=== PATIENT | female | born 1965 | race Caucasian/White ===

== ENCOUNTER 2018-11-23 12:13 | Outpatient (CLI) | payer OTHER ==
--- NOTE | 2018-11-23 14:41 | MRI ---
LEFT SHOULDER MRI WITHOUT IV CONTRAST: Date: 11/23/18 HISTORY: Tear of left rotator cuff, left shoulder pain with limited and painful range of motion for about 1 ye ar. FINDINGS: AC joint arthrosis changes are noted with minimal subchondral cystic change. Very mild fat stranding in the subacromial bursa. Irregular abnormal signal involving the supraspinatus tendon footplate syeda on, primarily bursal-sided, probably very high grade partial thickness tear versus a small associated punctate full thickness component extending to the undersurface. Abnormal signal associated with the superior labrum, evidence for a SLAP tear. Rotator cuff muscles within normal limits of signal and v olume. Biceps tendon and subscapularis tendons are intact. IMPRESSION: High grade partial thickness, primarily bursal-sided, tear with probable small punctate full thicknes s component, without retraction. AC joint arthrosis. Evidence for a superior labral tear. POS: [facility]
== END 2018-11-23 12:14 | disposition home or self-care (01) ==
LOC: BICMRI 12:13
PROVIDERS: ATTEND Orthopaedic Surgery
DX: M75.102 Unspecified rotator cuff tear or rupture of left shoulder, not specified as traumatic (principal); M19.012 Primary osteoarthritis, left shoulder; S43.402A Unspecified sprain of left shoulder joint, initial encounter

== ENCOUNTER 2019-01-22 03:04 | Outpatient (CLI) | payer OTHER ==
[2019-01-22 10:28] LABS: #Basophils 0.1 thou/uL (0.0-0.2); #Eosinphils 0.2 thou/uL (0.0-0.7); #Lymphocytes 1.7 thou/uL (1.20-3.40); #Monocytes 0.4 thou/uL (0.11-0.59); #Neutrophils 4.1 thou/uL (1.40-6.50); %Basophils 1.2 % (0.0-1.0); %Eosinophils 2.7 % (0.0-10.0); %Lymphocytes 26.5 % (21.0-51.0); %Monocytes 6.7 % (0.0-10.0); Hemoglobin 12.5 g/dL (12.0-16.0); Mean Corpuscular HGB CONC 33.9 g/dL (32.0-36.0); Mean Corpuscular Hemoglobin 30.9 pg (27.0-31.0); Mean Corpuscular Volume 91.1 fL (78.0-98.0); Mean Platelet Volume 6.5 fL (7.4-10.4); Platelet Count 269 thou/uL (130-400); Red Blood Cell (RBC) Count 4.06 mill/uL (4.20-5.40); White Blood Cell (WBC) Count 6.5 thou/uL (4.8-10.8)
[2019-01-22 10:45] LABS: Anion Gap 11 mmol/L (10-20); BUN (Urea Nitrogen) 11 mg/dL (9.8-20.1); Calc. Creatinine Clearance 0 mL/min (70-130); Calcium 9.3 mg/dL (7.8-10.44); Carbon Dioxide 27 mmol/L (22-29); Chloride 106 mmol/L (98-107); Estimated GFR-MDRD 81; Glucose 100 mg/dL (70-105); Potassium 3.9 mmol/L (3.5-5.1); Sodium 140 mmol/L (136-145)
--- NOTE | 2019-01-22 17:22 | EKG ---
Test Reason : Blood Pressure : / mmHG Vent. Rate : 065 BPM Atrial Rate : 065 BPM P-R Int : 156 ms QRS Dur : 080 ms QT Int : 418 ms P-R-T Axes : 060 066 060 degrees QTc Int : 434 ms Normal sinus rhythm Possible Anterior infarct , age undetermined Abnormal ECG No previous ECGs available Confirmed by DR. [place] SIBLEY ([id number]) on 01/22/2019 5:21:34 PM Referred By: IERO Confirmed By:DR. [place] SIBLEY
== END 2019-01-22 03:05 | disposition home or self-care (01) ==
LOC: LABBT 03:04
PROVIDERS: ATTEND Orthopaedic Surgery
DX: Z01.818 Encounter for other preprocedural examination (principal); M75.102 Unspecified rotator cuff tear or rupture of left shoulder, not specified as traumatic
CPT/HCPCS: 80048; 85025; 93005; 93010

== ENCOUNTER 2019-01-24 05:57 | Day surgery (SDC) | payer OTHER ==
[2019-01-22 10:13] VITALS: BMI 25.8
[2019-01-24] MEDS ORDERED: Midazolam HCl 2 mg/2 ml Vial ONE (07:09)
[2019-01-24] MEDS ORDERED: Fentanyl 100 MCG/2 ML VIAL ONE (07:09)
[2019-01-24] MEDS ORDERED: Zolpidem Tartrate 5 MG TAB PO PRN (07:16)
[2019-01-24] MEDS ORDERED: Promethazine HCl 25 MG/ML VIAL IM PRN (07:16)
[2019-01-24] MEDS ORDERED: HYDROcodone/Acetaminophen 10/325 mg Tablet PO PRN ×2 (07:16)
[2019-01-24] MEDS ORDERED: Ketorolac Tromethamine 30 MG/ML VIAL IVP PRN (07:16)
[2019-01-24] MEDS ORDERED: traMADol HCl 50 MG TAB PO PRN ×2 (07:16)
[2019-01-24] MEDS ORDERED: Ropivacaine 0.2% 550 ML 550 ML NERVE BLCK SCH (07:16)
[2019-01-24] MEDS ORDERED: Ondansetron PF 4 MG/2 ML Vial IVP PRN (07:16)
[2019-01-24] MEDS ORDERED: Fentanyl 100 MCG/2 ML VIAL IV PRN (07:17)
[2019-01-24] MEDS ORDERED: Bupivacaine/Epinephrine 0.25% 30 ML VIAL ONE (07:50)
[2019-01-24] MEDS ORDERED: Lidocaine 1% PF 5 ML VIAL ONE (13:32)
[2019-01-24] MEDS ORDERED: ePHEDrine 50 MG/ML VIAL ONE (13:32)
[2019-01-24] MEDS ORDERED: Rocuronium Bromide 10 MG/ML (10ML VIAL) ONE (13:32)
[2019-01-24] MEDS ORDERED: Dexamethasone 20 MG/5 ML VIAL ONE (13:32)
[2019-01-24] MEDS ORDERED: PROPOFOL 200 MG/20 ML VIAL ONE (13:32)
[2019-01-24] MEDS ORDERED: Ondansetron PF 4 MG/2 ML Vial ONE (13:32)
--- NOTE | 2019-01-24 14:02 | OP ---
DATE OF PROCEDURE: 01/24/2019 PREOPERATIVE DIAGNOSES: Left shoulder impingement, partial rotator cuff tear, and biceps instability secondary to degenerative SLAP tear. POSTOPERATIVE DIAGNOSES: Left shoulder impingement, partial rotator cuff tear, and biceps instability secondary to degenerative SLAP tear. PROCEDURES PERFORMED: 1. A left shoulder arthroscopy with subacromial decompression. 2. Debridement and shaving of degenerative labral tear as well as partial cuff tear. 3. Open biceps tenodesis. ROD TAPE OPERATOR: Triston Guo PA-C ESTIMATED BLOOD LOSS: Minimal. COMPLICATIONS: None. IMPLANTS: We did use a 7 x 23 BioComposite Bio-Tenodesis screw in standard fashion by [employer] for the biceps tenodesis. INDICATIONS: This 53-year-old female comes in after many months of trying to improve her left shoulder by therapy, activity modification, and injections. Unfortunately, this has failed to give her relief and at this time, she wished to have surgery. DESCRIPTION OF PROCEDURE: After all appropriate consent forms were explained and signed, she was taken back to the operating room and at this time was given general anesthetic. Once the level of anesthesia was appropriate, she was rolled into the right lateral decubitus position with all bony prominences well padded. A beckett bag was inflated to hold into its position. Axial roll was placed underneath the right axilla. The left shoulder was then taken through full range of motion. We then hung the arm up with 10 pounds of traction in standard fashion. We then prepped and draped the left shoulder and upper extremity in standard surgical fashion. Bony anatomical landmarks were drawn out and the subacromial space was infiltrated with Marcaine with epinephrine. Posterior portal was established. The scope was placed into the glenohumeral joint and a needle localization technique was then used to make an anterior working portal. Diagnostic arthroscopy commenced. The humeral head and glenoid were in good condition. However, there was a small area in the anterior portion of the humeral head, which did have a scuffed area secondary to the biceps tendon. There were no loose bodies noted in the axillary pouch. There was degenerative labral tearing of the anterior superior and posterior superior labrum. This was debrided with a shaver. There was some adhesion of the overlying cuff to the posterior labrum and this was using the surface energy and the shaver. The rotator cuff insertion appeared to be in fairly normal condition. At this time, we placed a cannula anteriorly and through the cannula, a 30-degree SutureLasso was used to place a suture through the biceps tendon. The biceps tendon was then cut off the superior labrum using the arthroscopic scissors. This area was then debrided with a shaver. We then removed the scope and replaced into the subacromial space. Lateral working portal was made and the bursa was removed from off the underlying cuff. A small bony decompression was performed and once we were able to fully evaluate the rotator cuff, we really did not find any area that looked as bad as it did on the MRI. There were some areas with some fraying of the bursal surface and this was debrided, but overall the cuff was intact circumferentially. We were able to visualize the entire cuff with internal and external rotation of the arm. It went all the way down the deltoid gutter and at this time, just a small area of frayed tendon was noted, this was debrided with the shaver. The scope was then removed. We then used a 15 blade to make an incision down through the skin. Bovie was used to coagulate any brisk venous bleeding. We then sharply incised the deltoid fascia. We used finger dissection to go down through the fibers of the deltoid to get to the underlying transverse humeral ligament. This was opened up. The biceps tendon was pulled out. We then sutured the tendon. We then cut off our intra-articular portion. We then drilled and placed a 7 x 23 Bio[employer]posite Bio-Tenodesis screw. Sutures were tied over top of this as the screw could not back out. Once this was done, we allowed the deltoid to close back on top of this. We thoroughly irrigated and dried. We closed our deltoid with a running Vicryl suture. 2-0 Vicryl and nylon sutures were used on the skin. A bulky sterile dressing was applied. The patient was then awakened, taken to recovery room in stable condition. All counts were correct at the end of the case and she did receive preoperative IV antibiotics. Job ID: [id number]
[2019-01-24] MEDS ORDERED: Ropivacaine 0.5% HCl/PF (150 MG/30 ML VIAL) ONE (16:12)
[2019-01-24] MEDS ORDERED: Ropivacaine 0.2% HCl/PF (40 MG/20 ML VIAL) ONE (16:12)
== END 2019-01-24 12:00 | disposition home or self-care (01) ==
LOC: SDC 05:57
PROVIDERS: ATTEND Orthopaedic Surgery
PROC: 0RBK4ZZ Excision of Left Shoulder Joint, Percutaneous Endoscopic Approach (ICD-10-PCS; principal; 2019-01-24)
PROC: 0LS20ZZ Reposition Left Shoulder Tendon, Open Approach (ICD-10-PCS; principal; 2019-01-24)
PROC: 0RHK04Z Insertion of Internal Fixation Device into Left Shoulder Joint, Open Approach (ICD-10-PCS; principal; 2019-01-24)
DX: M75.112 Incomplete rotator cuff tear or rupture of left shoulder, not specified as traumatic (principal); M25.812 Other specified joint disorders, left shoulder; S43.492A Other sprain of left shoulder joint, initial encounter; M25.312 Other instability, left shoulder; Z79.51 Long term (current) use of inhaled steroids; Z79.82 Long term (current) use of aspirin; Z79.899 Other long term (current) drug therapy
CPT/HCPCS: A4306; C1713; J0690; J2250; J2795; J3010

== ENCOUNTER 2020-06-05 15:45 | Outpatient (CLI) | payer OTHER ==
--- NOTE | 2020-06-05 16:49 | MMO ---
Bilateral MAMMO Bilat Screen [facility]. CLINICAL HISTORY: Patient is 54 years old and is seen for screening. VIEWS: The views performed were: . FILMS COMPARED: The present examination has been compared to prior imaging studies performed at on 09/14/2011, 10/05/2012 and 12/05/2013. This study has been interpreted with the assistance of computer-aided detection. MAMMOGRAM FINDINGS: There are scattered fibroglandular densities. Benign calcifications are noted bilaterally. There are no suspicious masses, suspicious calcifications, or new areas of architectural distortion. IMPRESSION: THERE IS NO MAMMOGRAPHIC EVIDENCE OF MALIGNANCY. A ROUTINE FOLLOW-UP MAMMOGRAM IN 1 YEAR IS RECOMMENDED. THE RESULTS OF THIS EXAM WERE SENT TO THE PATIENT. ACR BI-RADS Category 2 - Benign finding MAMMOGRAPHY NOTE: 1. A negative mammogram report should not delay a biopsy if a dominant of clinically suspicious mass is present. 2. Approximately 10% to 15% of breast cancers are not detected by mammography. 3. Adenosis and dense breasts may obscure an underlying neoplasm. Reported by: RADHA CAMPUZANO MD Electonically Signed: [id number]
== END 2020-06-05 15:46 | disposition home or self-care (01) ==
LOC: BICMAMMO 15:45
PROVIDERS: ATTEND Nurse Practitioner Family
DX: Z12.31 Encounter for screening mammogram for malignant neoplasm of breast (principal)
CPT/HCPCS: 77063; 77067